=== PATIENT | female | born 1945 | race Caucasian/White ===

== ENCOUNTER → 2016-10-23 | Outpatient (CLI) | payer OTHER | LOC: FIMAGING 06:29 | PROVIDERS: ATTEND Physician Assistant | DX: M51.36 Other intervertebral disc degeneration, lumbar region (principal); M51.26 Other intervertebral disc displacement, lumbar region; M48.06 Spinal stenosis, lumbar region; Q76.6 Other congenital malformations of ribs ==

== ENCOUNTER → 2017-01-27 | Outpatient (CLI) | payer OTHER | LOC: FIMAGING 09:10 | PROVIDERS: ATTEND Neurological Surgery | DX: M51.36 Other intervertebral disc degeneration, lumbar region (principal); M41.86 Other forms of scoliosis, lumbar region ==

== ENCOUNTER → 2017-03-12 | Outpatient (CLI) | payer OTHER | LOC: FIMAGING 07:58 | PROVIDERS: ATTEND Internal Medicine | DX: Z12.31 Encounter for screening mammogram for malignant neoplasm of breast (principal) | CPT/HCPCS: G0202 ==

== ENCOUNTER 2017-10-25 05:41 | Observation (INO) | payer OTHER ==
--- NOTE | 2017-10-24 08:30 | GHP ---
[f rep st] PREOP HISTORY AND PHYSICAL DATE OF ADMISSION: 10/25/2017 HISTORY: The patient is a 72-year-old female who has longstanding and progressive right knee tricomp artment osteoarthritis. Her knee is painful, swollen, has some limitation of motion, impacts her gai t, causes her to limp, and significantly impacts her quality of life. She has had appropriate conser vative measures, she has tried to remain physically active and done exercises. She has used medicati ons, has had a couple rounds of viscosupplementation, and the last round was not much help. She comp lains the right knee tends to give way on her. Her x-rays show significant tricompartment osteoarthr itis, degenerative lipping, narrowing of joint space especially the patellofemoral joint, subchondral sclerosis. A right total knee arthroplasty is planned. PAST MEDICAL HISTORY: Remarkable for elevation of cholesterol, reflux. She has had a history of tommie g-induced hepatitis, osteopenia, hypothyroid. PAST SURGICAL HISTORY: Include a right knee scope, oophorectomy, hysterectomy, vein stripping, tonsi llectomy. MEDICATIONS: She is on 2 medications by prescription, Zetia 10 mg p.o. daily, thyroid 50 mcg daily. ALLERGIES: She has numerous allergies. Doxycycline, codeine labeled as ES 400 has been a problem, P henergan has been a problem. Vicodin, interestingly, has been okay. SOCIAL HISTORY: She is a nonsmoker. REVIEW OF SYSTEMS: Positive from a GI standpoint for reflux, from the cardiopulmonary standpoint for elevated cholesterol, from the endocrine standpoint for hypothyroid. PHYSICAL EXAM: GENERAL: The patient is a well-developed, well-nourished female in no apparent distr ess. HEAD AND NECK: Normocephalic, atraumatic. CHEST: Clear. CARDIOVASCULAR: Regular rate and r hythm. ABDOMEN: Soft. NEUROLOGIC: She is alert and oriented x3. EXTREMITIES: Examination of the right knee shows tenderness along the medial and lateral joint lines as well as around the patellofe moral joint, she has just about 100 degrees of bend, slight flexion contracture. NEUROVASCULAR: Int act. SKIN: Intact. IMAGING: X-rays as described, show right knee tricompartment osteoarthritis. PLAN: Right total knee arthroplasty. Benefits and risks of surgery have been reviewed with the serafin ent. She understands that the risks include infection, damage to blood vessels or nerves, failure or loosening of components, blood clot in the leg or lungs, bleeding and need for transfusion, and we d iscussed the rigorous nature of the rehabilitation period. She has signed a consent form and wishes to proceed. /[id number]/MODL
[2017-10-25] MEDS ORDERED: ceFAZolin 2 GM/SWFI 2 GM/20 ML SYR IVP ONE (05:51)
[2017-10-25] MEDS ORDERED: DEXAMETHASONE 4 MG/ML VIAL IVP ONE (05:51)
[2017-10-25] MEDS ORDERED: FAMOTIDINE 20 MG TAB PO ONE (05:51)
[2017-10-25] MEDS ORDERED: ACETAMINOPHEN 325 MG TAB PO ONE (05:51)
[2017-10-25] MEDS ORDERED: LR 1,000 ML IV ONE (05:53)
[2017-10-25] MEDS ORDERED: ROPIVACAINE 0.2% 80 MG, EPINEPHrine 0.2 MG, KETOROLAC TROMETHAMINE 30 MG in SYRINGE 0 ML IU ONE (06:00)
[2017-10-25] MEDS ORDERED: TRANEXAMIC ACID IV ONE (06:00)
[2017-10-25] MEDS ORDERED: NS IV ONE (06:00)
[2017-10-25] MEDS ORDERED: POVIDONE-IODINE 20 ML in SODIUM CL IRRIG SOLUTION 500 ML IRR ONE (06:00)
[2017-10-25] MEDS ORDERED: MIDAZOLAM 2 MG/2 ML VIAL IVP ONE (06:57)
[2017-10-25] MEDS ORDERED: ceFAZolin 1 GM/5 ML SYR ONE (06:58)
--- NOTE | 2017-10-25 06:59 | PDANEPAE ---
ANE History of Present Illness r knee oa ANE Past Medical History - Cardiovascular History Hx Hypertension: No Hx Arrhythmias: No Hx Chest Pain: No Hx Coronary Artery / Peripheral Vascular Disease: No Hx CHF / Valvular Disease: No Hx Palpitations: No - Pulmonary History Hx COPD: No Hx Asthma/Reactive Airway Disease: No Hx Recent Upper Respiratory Infection: No Hx Oxygen in Use at Home: No Hx Sleep Apnea: No Sleep Apnea Screening Result - Last Documented: Negative Pulmonary History Comment: FLU END OF 08/2017. EAR OTITIS MEDIA 06/2017 - Neurologic History Hx Cerebrovascular Accident: No Hx Seizures: No Hx Dementia: No - Endocrine History Hx Diabetes: No Endocrine History Comment: HYPOTHYROID - Renal History Hx Renal Disorders: No - Liver History Hx Hepatic Disorders: No - Neurological & Psychiatric Hx Hx Neurological and Psychiatric Disorders: No - Cancer History Hx Cancer: No - Congenital Disorder History Hx Congenital Disorders: No - GI History Hx Gastrointestinal Disorders: No Gastrointestinal History Comment: RARE HEARTBURN WILL USE OTC. PREV EGD/ COLONOSCOPY HAD SOME. LOWER - Other Health History Other Health History: OSTEOARTHRITIS - Chronic Pain History Chronic Pain: Yes (RT KNEE) - Surgical History Prior Surgeries: MICRODECOMPRESSION 02/2017. RT KNEE SCOPE. BREAST AUGMENTATION. HYSTERECTOMY. BSO. LT ANKLE RECONSTRUCTION. VENOUS STRIPPING. T&A ANE Review of Systems Review of Systems: - Exercise capacity METS (RN): 4 METS ANE Patient History - Allergies Allergies/Adverse Reactions: ketorolac tromethamine [From Toradol] Allergy (Mild, Verified 10/24/17 18:58) Rash codeine [Codeine] Allergy (Verified 10/24/17 18:58) NAUSEATED doxycycline Allergy (Verified 09/24/17 14:39) NAUSEA AND VOMITING erythromycin base [Erythromycin Base] Allergy (Verified 09/24/17 14:38) JAUNDICE Phenothiazines Allergy (Verified 09/24/17 14:38) JAUNDICE - Home Medications Home Medications: Acetaminophen [Tylenol ES 500 mg (*)] 1,000 mg PO HS 09/20/17 [Last Taken ] Ascorbic Acid [Vitamin C 500 mg (*)] 1,000 mg PO DAILY 09/20/17 [Last Taken ] Calcium Carbonate [Oyster Shell Calcium 500 mg (*)] 1,000 mg PO DAILY 09/20/17 [ Last Taken 10/18/17] Cholecalciferol Vit D3 [Vitamin D3 (*)] 1,000 units PO DAILY 09/20/17 [Last Taken 10/18/17] Doxylamine Succinate [Sleep Aid] 25 mg PO HS 09/20/17 [Last Taken 10/24/17] Ezetimibe [Zetia 10 MG (*)] 10 mg PO DAILY 09/20/17 [Last Taken 10/25/17] Herbals/Supplements -Info Only 1 ea PO DAILY 09/20/17 [Last Taken 10/18/17] Ibuprofen [Motrin (*)] 400 mg PO DAILY PRN 09/20/17 [Last Taken 10/18/17] Levothyroxine [Synthroid 50 mcg (*)] 50 mcg PO DAILY 09/20/17 [Last Taken ] Loperamide HCl [Imodium 2 mg (*)] 2 mg PO PRN PRN 09/20/17 [Last Taken 10/16/17] Multivitamins [Multivitamin (*)] 1 each PO DAILY 09/20/17 [Last Taken 10/18/17] Naproxen [Naprosyn] 500 mg PO DAILY PRN 09/20/17 [Last Taken 10/18/17] [place]-3 Fatty Acids [Fish Oil 1000 mg (*)] 1,000 mg PO DAILY 09/20/17 [Last Taken 10/18/17] traMADol [Ultram 50 mg (*)] 50 mg PO DAILY PRN 09/20/17 [Last Taken 10/23/17] - NPO status NPO Since - Liquids (Date): 10/25/17 NPO Since - Liquids (Time): 04:00 NPO Since - Solids (Date): 10/24/17 NPO Since - Solids (Time): 20:30 - Smoking Hx Smoking Status: Never smoked ANE Labs/Vital Signs - Vital Signs Blood Pressure: 142/57 Heart Rate: 74 Respiratory Rate: 16 O2 Sat (%): 97 Height: 167.64 cm Weight: 61.689 kg ANE Physical Exam - Airway Neck exam: FROM Mallampati Score: Class 1 Mouth exam: normal dental/mouth exam - Pulmonary Pulmonary: no respiratory distress - Cardiovascular Cardiovascular: regular rate and rhythym - ASA Status ASA Status: II ANE Anesthesia Plan Anesthesia Plan: GA w LMA, MAC, spinal Regional Anesthesia: adductor canal FNB
[2017-10-25] MEDS ORDERED: ONDANSETRON 4 MG/2 ML VIAL ONE (07:05)
[2017-10-25] MEDS ORDERED: PROPOFOL/EMULSION 500 MG/50 ML BOTTLE IV ONE ×2 (07:05→08:45)
[2017-10-25] MEDS ORDERED: DEXAMETHASONE 4 MG/ML VIAL ONE (07:05)
--- NOTE | 2017-10-25 07:28 | PDHPUP ---
History & Physical Update H&P update statement: This history and physical update is based on an assessment of the patient which was completed after admission or registration (within 24 hours), but prior to the surgery/procedure.
[2017-10-25] MEDS ORDERED: fentaNYL 100 MCG/2 ML INJ ONE ×2 (08:02→09:31)
[2017-10-25] MEDS ORDERED: ONDANSETRON 4 MG/2 ML VIAL IVP PRN ×2 (08:07→09:36)
[2017-10-25] MEDS ORDERED: NALOXONE HCL 0.4 MG/ML INJ IVP PRN (08:07)
[2017-10-25] MEDS ORDERED: ROPIVACAINE HCL 150 MG/30 ML INJ ONE (08:16)
[2017-10-25] MEDS ORDERED: HYDROmorphONE/DILAUDID 1 MG/ML INJ ONE (09:31)
[2017-10-25] MEDS: fentaNYL 100 MCG/2 ML INJ IVP PRN ×2 (09:34→09:42)
[2017-10-25] MEDS ORDERED: LACTULOSE 20 GM/30 ML UDCUP PO PRN (09:36)
[2017-10-25] MEDS ORDERED: DIPHENOXYLATE/ATROPINE LOMOTIL 1 TAB PO PRN (09:36)
[2017-10-25] MEDS ORDERED: CYCLOBENZAPRINE 10 MG TAB PO PRN (09:36)
[2017-10-25] MEDS ORDERED: TEMAZEPAM 15 MG CAP PO PRN (09:36)
[2017-10-25] MEDS ORDERED: diphenhydrAMINE 25 MG CAP PO PRN (09:36)
[2017-10-25] MEDS ORDERED: PROMETHAZINE HCL 25 MG/ML INJ IVP PRN (09:36)
[2017-10-25] MEDS ORDERED: ONDANSETRON DISINTEGRATING 4 MG TAB PO PRN (09:36)
[2017-10-25] MEDS ORDERED: METOCLOPRAMIDE 10 MG/2 ML VIAL IVP PRN (09:36)
[2017-10-25] MEDS ORDERED: KETOROLAC 30 MG/1 ML SDV IVP PRN (09:36)
[2017-10-25] MEDS ORDERED: MAGNESIUM HYDROXIDE 30 ML UDCUP PO PRN (09:36)
[2017-10-25] MEDS ORDERED: POLYETHYLENE GLYCOL 3350 17 GM PKT PO PRN (09:36)
[2017-10-25] MEDS ORDERED: BISACODYL 10 MG SUPP PR PRN (09:36)
[2017-10-25] MEDS ORDERED: PROMETHAZINE HCL 25 MG SUPPR PR PRN (09:36)
--- NOTE | 2017-10-25 09:38 | POSTANESTH ---
Post Anesthetic Evaluation Cardiovascular Status: Normal, Stable Respiratory Status: Normal, Stable Level of Consciousness/Mental Status: Can Participate in Eval Pain Control: Adequate, Prn Tx Ordered Nausea/Vomiting Control: Adequate, Prn Tx Ordered Complications Possibly Related to Anesthesia: None Noted
[2017-10-25] MEDS ORDERED: traMADol 50 MG TAB PO PRN (09:40)
[2017-10-25] MEDS: HYDROmorphONE/DILAUDID 1 MG/ML INJ IVP PRN ×4 (09:53→10:31)
[2017-10-25] MEDS ORDERED: LR 1,000 ML IV SCH (10:00)
--- NOTE | 2017-10-25 10:41 | GOP ---
[f rep st] OPERATIVE REPORT DATE OF OPERATION: 10/25/2017 SURGEON: Hu Augustin MD HARD TILE SETTER APPRENTICE: Enrico Ward, CSFA, LSA PREOPERATIVE DIAGNOSIS: Right knee osteoarthritis. POSTOPERATIVE DIAGNOSIS: Right knee osteoarthritis. PROCEDURE PERFORMED: Right total knee arthroplasty. FINDINGS: SPECIMENS: Include excised bone. ESTIMATED BLOOD LOSS: Minimal. INDICATIONS: The patient is a 72-year-old female, who presents with history, exam, and x-rays consis tent with severe right knee tricompartment osteoarthritis. DESCRIPTION OF PROCEDURE: The patient was taken the operating room, received a spinal block, and was placed supine on the operating room table. She received 2 g of IV Ancef as well as her dose of conde examic acid. A tourniquet was fit high on the right thigh, and the right leg was prepped and draped free in the usual fashion with chlorhexidine. The limb was elevated, exsanguinated, the tourniquet i nflated 275 mmHg. I made a longitudinal incision in the midline, dissected through subcutaneous tiss ue, exposed the extensor mechanism. Then used a medial parapatellar arthrotomy. The patella was inv erted and measured its thickness at 20 mm. I removed 9 mm of cartilage and bone to accommodate the i mplant. This was sized to a 35 and PEG holes were drilled and the trial component was a good fit and I trimmed osteophytes. The knee was flexed. I drilled a elevator pilot hole in the distal femur using intra medullary device at 5 degrees of valgus to make a distal femoral cut. There was no flexion contractu re, so this was a neutral cut. I sized the femur to a size 4. I applied appropriate cutting blocks and made anterior, posterior, and chamfer cuts as well as the notch cuts for this bi-cruciate stabili zed knee. Size 4 component was a good fit. The knee was flexed. The posterior and lateral retracto rs were placed. I used an extramedullary device on the tibia. I adjusted for rotation posterior slo pe, appropriate depth, made a cut, sized the tibia at 3, dialed in the rotation, and completed the ti bial prep. All the trial components were removed. I jet lavaged the knee, dried the surfaces. Meth ylmethacrylate was applied to tibia, femur, then patella, and all the components were placed. I did trial reductions and found that a 9 mm articular tray allowed full extension, excellent rollback in f lexion, appropriate collateral stability, and appropriate soft tissue tension. The size 9 mm articul ar tray cross-linked poly was then slipped into the tibial component. I let the tourniquet down afte r about an hour and 10 minutes. She received a second dose of tranexamic acid IV. I closed the arth rotomy with interrupted [id number] sutures of 0 Mersilene. Subcutaneous tissue was closed with 2-0 Monocryl, and the skin was closed with raghu. The wound was dressed with Betadine-soaked Adapt ic, 4 x 4, sterile Webril, and a long-leg EVY stocking. There were no complications. DRAINS: None. COUNTS: All counts were correct. The patient was taken in stable condition to Recovery. My assembler surgical garment was a medical necessity for this knee replacement. SUMMARY OF COMPONENTS: This is a [employer] knee. All components cemented. The femur is Oxinium. The poly is cross-linked polyethylene femur size 4, tibia size 3, liner is 9 mm thick, and the patella is 35. /[id number]/MODL
[2017-10-25] MEDS: ACETAMINOPHEN 325 MG TAB PO SCH ×2 (12:11→18:42)
[2017-10-25] MEDS: oxyCODONE IR 5 MG TAB PO PRN ×2 (13:35→18:42)
[2017-10-25] MEDS ORDERED: ceFAZolin 2 GM/DEXTROSE 100 ML IV SCH (14:00)
--- NOTE | 2017-10-25 15:00 | ASMTCMCOM ---
CM Note CM Note Notes: Chart reviewed. Patient s/p TKA. She lives in [place] with her . Pt reported to staff Dr. Augustin states she will need home PT. I attempted to see if she had [facility] company chosen and provide her with a list of providers but she is asleep. Therapy notes pending. CM to follow. Date Signed: 10/25/2017 03:00 PM Electronically Signed By:Areli Mojica RN
[2017-10-25] MEDS: ceFAZolin 2 GM/SWFI 2 GM/20 ML SYR IVP SCH (16:20)
[2017-10-25] MEDS: FAMOTIDINE 20 MG TAB PO SCH (21:27)
[2017-10-25] MEDS: ASPIRIN 325 MG TAB PO SCH (21:28)
[2017-10-25] MEDS: SENNOSIDES/DOCUSATE SODIUM TAB PO SCH (21:32)
[2017-10-26] MEDS: ceFAZolin 2 GM/SWFI 2 GM/20 ML SYR IVP SCH (00:18)
[2017-10-26] MEDS: ACETAMINOPHEN 325 MG TAB PO SCH ×3 (00:18→06:16)
[2017-10-26] MEDS: oxyCODONE IR 5 MG TAB PO PRN ×3 (03:51→11:10)
--- NOTE | 2017-10-26 07:47 | SOAPPROG ---
SOAP Progress Note Assessment/Plan: Assessment: 10/26/17 R TKA, up walking, pain controlled, dressing dry Plan: 10/26/17 07:44 PT/OT, and home, has meds: vicodin, celebrex and asa, home PT Objective: Vital Signs Temp Pulse Resp BP Pulse Ox 36.5 C 75 19 121/55 H 99 10/26/17 03:40 10/26/17 03:40 10/26/17 03:40 10/26/17 03:40 10/26/17 03:40 Laboratory Results 10/26/17 04:53 10/25/17 10/26/17 10/27/17 05:59 05:59 05:59 Intake Total 2400 Output Total 1015 Balance 1385 ICD10 Worksheet Patient Problems: Problems Problem Status Onset Osteoarthritis of right knee Acute - ICD10 Problem Qualifiers (1) Osteoarthritis of right knee
[2017-10-26 08:04] VITALS: BP 137/56; PULSE 73; RESP 18; TEMP 98.4; O2SAT 97
[2017-10-26] MEDS: FAMOTIDINE 20 MG TAB PO SCH (08:44)
[2017-10-26] MEDS: ASPIRIN 325 MG TAB PO SCH (08:44)
[2017-10-26] MEDS: SENNOSIDES/DOCUSATE SODIUM TAB PO SCH (08:45)
[2017-10-26] MEDS ORDERED: CALCIUM CARBONATE 500 MG TAB PO SCH (09:00)
[2017-10-26] MEDS ORDERED: MULTIVITAMINS 1 EACH TAB PO SCH (09:00)
[2017-10-26] MEDS ORDERED: EZETIMIBE 10 MG TAB PO SCH (09:00)
[2017-10-26] MEDS ORDERED: CHOLECALCIFEROL VIT D3 1,000 UNITS TAB PO SCH (09:00)
[2017-10-26] MEDS ORDERED: OMEGA-3 FATTY ACIDS 1,000 MG CAP PO SCH (09:00)
[2017-10-26] MEDS ORDERED: LEVOTHYROXINE 50 MCG TAB PO SCH (09:00)
[2017-10-26] MEDS ORDERED: Herbals/Supplements -Info Only PO SCH (09:00)
[2017-10-26] MEDS ORDERED: ASCORBIC ACID 500 MG TAB PO SCH (09:00)
--- NOTE | 2017-10-26 12:02 | ASDISCHSUM ---
Discharge Information Plan Status:Home with Home Health Medically Cleared to Leave: Discharge Date:10/26/2017 11:56 AM CM D/C Disposition:Home Health Service ADT D/C Disposition:[id number] Projected Discharge Date:10/26/2017 11:00 AM Transportation at D/C:Family Discharge Delay Reason: Follow-Up Date:10/26/2017 11:00 AM Discharge Slot: Final Diagnosis: Placement Information Referral Type:*Home Health Care Services Referral ID:[id number] Provider Name:[facility] Address 1:[address] Address 2: City:[place] Selection Factors: State:[place] Patient Contact Information Contact Name:ELAINE Relationship: Address:[address] City:[place] Alternate Phone: [facility]/Zip Code:[place] [address] Email: Financial Information Financial Class:Medicare Primary Plan Desc:MEDICARE OUTPATIENT Primary Plan Number:[id number] Secondary Plan Desc:JESSA MARI [id number] [facility] Secondary Plan Number:[id number] Assessment Information [facility] CM Progress Note CM Note CM Note Notes: Chart reviewed. Patient s/p TKA. She lives in [place] with her . Pt reported to staff Dr. Augustin states she will need home PT. I attempted to see if she had [facility] company chosen and provide her with a list of providers but she is asleep. Therapy notes pending. CM to follow. Date Signed: 10/25/2017 03:00 PM Electronically Signed By:Areli Mojica RN [facility] CM Progress Note CM Note CM Note Notes: Pt medically stable for d/c with [facility] which was pre-arranged by MD office, the MD office has provided [facility] orders already. Date Signed: 10/26/2017 12:01 PM Electronically Signed By:YOCASTA Newberry Intervention Information Intervention Type:*Incorrect Registration Date of Service:10/25/2017 10:01 AM Patient Type:Inpatient Staff Member:GRAZYNA Kirkpatrick, Dacia Hours: Discipline: Severity: Comment: Intervention Type:*GRAY-Signed Date of Service:10/25/2017 02:09 PM Patient Type:Observation Staff Member:Izabela Conrad Hours: Discipline: Severity: Comment:
== END 2017-10-26 11:56 | disposition home health service (06) ==
LOC: F3N 05:41 → INTOOBSV 05:41 → F3N 10:57
PROVIDERS: ADMIT Orthopaedic Surgery; ATTEND Orthopaedic Surgery
PROC: 0SRC0JZ Replacement of Right Knee Joint with Synthetic Substitute, Open Approach (ICD-10-PCS; principal; 2017-10-25 07:15)
DX: M17.11 Unilateral primary osteoarthritis, right knee (principal); E78.00 Pure hypercholesterolemia, unspecified; K21.9 Gastro-esophageal reflux disease without esophagitis; K75.9 Inflammatory liver disease, unspecified; E03.9 Hypothyroidism, unspecified
CPT/HCPCS: 27447; 73560; 88311; 97110; 97116; 97161; 97165; 97530; C1713; C1776; G8978; G8979; G8980; G8987; G8988; G8989; J0171; J0690; J1100; J1170; J1885; J2250; J2405; J2704; J2795; J3010

== ENCOUNTER → 2018-03-14 | Outpatient (CLI) | payer OTHER | LOC: FIMAGING 10:13 | PROVIDERS: ATTEND Internal Medicine | DX: Z12.31 Encounter for screening mammogram for malignant neoplasm of breast (principal) ==

== ENCOUNTER 2018-06-20 05:36 | Inpatient (IN) | payer OTHER ==
--- NOTE | 2018-06-19 13:18 | GHP ---
DATE OF ADMISSION: 06/20/2018 HISTORY: The patient is a 73-year-old female who presents with left knee tricompartment osteoarthrit is. She has pain, swelling, and abnormalities of her gait, limited motion, this impacts her quality of life and even activities of daily living. She has tried appropriate conservative measures. She h as had a successful right total knee arthroplasty. She would like to proceed with replacement of the left side hip. PAST MEDICAL HISTORY: Remarkable for elevated cholesterol. She has some reflux for which she uses P epcid at night. She has osteopenia, hypothyroid. PAST SURGICAL HISTORY: Her surgeries, include a right total knee arthroplasty, oophorectomy, vascula r vein stripping lower extremity, tonsillectomy, hysterectomy. She has had a previous right knee art hroscopy. MEDICATIONS: Synthroid 50 mcg p.o. daily. ALLERGIES: She has medicine allergies, sensitivities. Codeine is a problem, oxycodone is tolerated, doxycycline, gadolinium and Phenergan, though Zofran works fine. SOCIAL HISTORY: She is a nonsmoker. REVIEW OF SYSTEMS: Positive from the endocrine standpoint for hypothyroid. PHYSICAL EXAM: GENERAL: The patient is a well-developed, well-nourished female in no apparent distr ess. HEAD AND NECK: Normocephalic, atraumatic. CHEST: Clear. CARDIOVASCULAR: Regular rate and r hythm. ABDOMEN: Soft. NEUROLOGIC: She is alert orient x3. EXTREMITIES: Examination of the left lower extremity shows a slight flexion contracture. She is bending to 120 degrees. She has joint li ne tenderness, small effusion, reasonable valgus alignment. Neurovascular exam appears intact. IMPRESSION: Left knee osteoarthritis. PLAN: Procedure left total knee arthroplasty. Benefits and risks of surgery have been reviewed with the patient. She understands that the risks, include infection, damage to blood vessel or nerve, fa ilure or loosening of components and need for revision, blood clot in leg or lungs, bleeding, and nee d for transfusion, and she is well aware of the rigorous nature of the rehabilitation, she has signed a consent form wishes to proceed. /[id number]/MODL
[2018-06-20] MEDS ORDERED: POVIDONE-IODINE 20 ML in SODIUM CL IRRIG SOLUTION 500 ML IRR ONE (06:00)
[2018-06-20] MEDS ORDERED: TRANEXAMIC ACID 1,000 MG in NS 100 ML IV ONE (06:00)
[2018-06-20] MEDS ORDERED: ROPIVACAINE 0.2% 80 MG, EPINEPHrine 0.2 MG, KETOROLAC TROMETHAMINE 30 MG in SYRINGE 0 ML IU ONE (06:00)
[2018-06-20] MEDS ORDERED: GABAPENTIN 300 MG CAP PO ONE (06:13)
[2018-06-20] MEDS ORDERED: ceFAZolin 2 GM/DEXTROSE 100 ML IV ONE (06:13)
[2018-06-20] MEDS ORDERED: ACETAMINOPHEN 325 MG TAB PO ONE (06:13)
[2018-06-20] MEDS ORDERED: ONDANSETRON 4 MG/2 ML VIAL IVP ONE (06:13)
[2018-06-20] MEDS ORDERED: DEXAMETHASONE 4 MG/ML VIAL IVP ONE (06:13)
[2018-06-20] MEDS ORDERED: FAMOTIDINE 20 MG TAB PO ONE (06:13)
[2018-06-20] MEDS ORDERED: LR 1,000 ML IV ONE (06:14)
[2018-06-20] MEDS ORDERED: LIDOCAINE 1% 2 ML INJ ID PRN (06:14)
[2018-06-20] MEDS ORDERED: ceFAZolin 1 GM/5 ML SYR ONE (06:20)
--- NOTE | 2018-06-20 06:46 | PDANEPAE ---
ANE History of Present Illness OA here for TKA ANE Past Medical History - Cardiovascular History Hx Hypertension: No Hx Arrhythmias: No Hx Chest Pain: No Hx Coronary Artery / Peripheral Vascular Disease: No Hx CHF / Valvular Disease: No Hx Palpitations: No - Pulmonary History Hx COPD: No Hx Asthma/Reactive Airway Disease: No Hx Recent Upper Respiratory Infection: No Hx Oxygen in Use at Home: No Hx Sleep Apnea: No Sleep Apnea Screening Result - Last Documented: Negative Pulmonary History Comment: FLU END OF 08/2017. 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 PREV EGD/ COLONOSCOPY HAD SOME. LOWER - Other Health History Other Health History: OSTEOARTHRITIS - Chronic Pain History Chronic Pain: Yes (RT KNEE) - Surgical History Prior Surgeries: MICRODECOMPRESSION 02/2017. RT KNEE SCOPE. BREAST AUGMENTATION. HYSTERECTOMY. BSO. LT ANKLE RECONSTRUCTION. VENOUS STRIPPING. T&A ANE Review of Systems Review of Systems: - Exercise capacity METS (RN): 4 METS ANE Patient History - Allergies Allergies/Adverse Reactions: codeine [Codeine] Allergy (Verified 05/16/18 11:18) NAUSEATED doxycycline Allergy (Verified 05/16/18 11:18) NAUSEA AND VOMITING erythromycin base [Erythromycin Base] Allergy (Verified 05/16/18 11:18) jaundice/elevated liver enzymes w/high doses Iodinated Contrast- Oral and IV Dye Allergy (Verified 05/11/18 12:02) Hives Phenothiazines Allergy (Verified 05/16/18 11:18) fever, elevated liver enzymes - Home Medications Home Medications: Acetaminophen [Tylenol ES 500 mg (*)] 1,000 mg PO HS 09/20/17 [Last Taken ] Ascorbic Acid [Vitamin C 500 mg (*)] 1,000 mg PO DAILY 09/20/17 [Last Taken ] Calcium Carbonate [Oyster Shell Calcium 500 mg (*)] 1,000 mg PO DAILY 09/20/17 [ Last Taken 10/18/17] Cholecalciferol Vit D3 [Vitamin D3 (*)] 1,000 units PO DAILY 09/20/17 [Last Taken 10/18/17] Doxylamine Succinate [Sleep Aid] 50 mg PO HS 09/20/17 [Last Taken 10/24/17] Herbals/Supplements -Info Only 1 ea PO DAILY 09/20/17 [Last Taken 10/18/17] Ibuprofen [Motrin (*)] 400 mg PO DAILY PRN 09/20/17 [Last Taken 10/18/17] Levothyroxine [Synthroid 50 mcg (*)] 50 mcg PO DAILY 09/20/17 [Last Taken ] Loperamide HCl [Imodium 2 mg (*)] 2 mg PO PRN PRN 09/20/17 [Last Taken 10/16/17] Multivitamins [Multivitamin (*)] 1 each PO DAILY 09/20/17 [Last Taken 10/18/17] [place]-3 Fatty Acids [Fish Oil 1000 mg (*)] 1,000 mg PO DAILY 09/20/17 [Last Taken 10/18/17] traMADol [Ultram 50 mg (*)] 50 mg PO DAILY PRN 09/20/17 [Last Taken 10/23/17] Famotidine [Pepcid 20 MG (*)] 20 mg PO HS 05/11/18 [Last Taken Unknown] - NPO status NPO Status: no food or drink >8 hours NPO Since - Liquids (Date): 06/19/18 NPO Since - Liquids (Time): 00:00 NPO Since - Solids (Date): 06/19/18 NPO Since - Solids (Time): 00:00 - Anes Hx Anes Hx: no prior problems - Smoking Hx Smoking Status: Never smoked - Alcohol Use Alcohol Use: Occasionally - Family Anes Hx Family Anes Hx: none Family Hx Anesthesia Complications: Sister also locks jaw w/ANE ANE Labs/Vital Signs - Vital Signs Vital Signs: reviewed preoperatively; see RN documention for details Height: 167.64 cm Weight: 64.41 kg ANE Physical Exam - Airway Neck exam: FROM Mallampati Score: Class 2 Mouth exam: normal dental/mouth exam - Pulmonary Pulmonary: no respiratory distress, clear to auscultation - Cardiovascular Cardiovascular: regular rate and rhythym, no murmur, rub, or gallop - ASA Status ASA Status: II ANE Anesthesia Plan Anesthesia Plan: GA with mask, spinal Regional Anesthesia: single shot NB, adductor canal FNB
[2018-06-20] MEDS ORDERED: MIDAZOLAM 2 MG/2 ML VIAL IVP ONE (06:47)
[2018-06-20] MEDS ORDERED: PROPOFOL/EMULSION 500 MG/50 ML BOTTLE IV ONE ×2 (06:54→09:21)
--- NOTE | 2018-06-20 07:20 | PDHPUP ---
History & Physical Update H&P update statement: This history and physical update is based on an assessment of the patient which was completed after admission or registration (within 24 hours), but prior to the surgery/procedure. H&P update: H&P reviewed & patient examined (no change)
[2018-06-20] MEDS ORDERED: ROPIVACAINE HCL 150 MG/30 ML INJ ONE (08:09)
[2018-06-20] MEDS ORDERED: clonIDINE 1 MG/10 ML VIAL EP ONE (08:09)
[2018-06-20] MEDS ORDERED: ONDANSETRON 4 MG/2 ML VIAL IVP PRN ×2 (09:31→09:39)
[2018-06-20] MEDS ORDERED: ACETAMINOPHEN 500 MG TAB PO PRN (09:31)
[2018-06-20] MEDS ORDERED: NALOXONE HCL 0.4 MG/ML INJ IVP PRN (09:31)
[2018-06-20] MEDS ORDERED: oxyCODONE IR 5 MG TAB PO PRN (09:31)
--- NOTE | 2018-06-20 09:37 | POSTANESTH ---
Post Anesthetic Evaluation Cardiovascular Status: Normal, Stable, Similar to Pre-Op Cond Respiratory Status: Normal, Stable, Similar to Pre-op Cond. Level of Consciousness/Mental Status: Can Participate in Eval, Alert and Oriented Pain Control: Adequate, Prn Tx Ordered Nausea/Vomiting Control: Adequate, Prn Tx Ordered Complications Possibly Related to Anesthesia: None Noted
[2018-06-20] MEDS ORDERED: MAGNESIUM HYDROXIDE 30 ML UDCUP PO PRN (09:39)
[2018-06-20] MEDS ORDERED: TEMAZEPAM 15 MG CAP PO PRN (09:39)
[2018-06-20] MEDS ORDERED: diphenhydrAMINE 25 MG CAP PO PRN (09:39)
[2018-06-20] MEDS ORDERED: CYCLOBENZAPRINE 10 MG TAB PO PRN (09:39)
[2018-06-20] MEDS ORDERED: PROMETHAZINE HCL 25 MG SUPPR PR PRN (09:39)
[2018-06-20] MEDS ORDERED: ONDANSETRON DISINTEGRATING 4 MG TAB PO PRN (09:39)
[2018-06-20] MEDS ORDERED: KETOROLAC 15 MG/1 ML SDV IVP ONE (09:39)
[2018-06-20] MEDS ORDERED: METOCLOPRAMIDE 10 MG/2 ML VIAL IVP PRN (09:39)
[2018-06-20] MEDS ORDERED: DIPHENOXYLATE/ATROPINE LOMOTIL 1 TAB PO PRN (09:39)
[2018-06-20] MEDS ORDERED: LACTULOSE 20 GM/30 ML UDCUP PO PRN (09:39)
[2018-06-20] MEDS ORDERED: PROMETHAZINE HCL 25 MG/ML INJ IVP PRN (09:39)
[2018-06-20] MEDS ORDERED: POLYETHYLENE GLYCOL 3350 17 GM PKT PO PRN (09:39)
[2018-06-20] MEDS ORDERED: BISACODYL 10 MG SUPP PR PRN (09:39)
[2018-06-20] MEDS ORDERED: LR 1,000 ML IV SCH (10:00)
[2018-06-20] MEDS ORDERED: fentaNYL 100 MCG/2 ML INJ ONE (10:01)
[2018-06-20] MEDS: fentaNYL 100 MCG/2 ML INJ IVP PRN ×2 (10:05→10:40)
--- NOTE | 2018-06-20 10:13 | GOP ---
DATE OF OPERATION: 06/20/2018 SURGEON: Hu Augustin MD ADMISSIONS ASSISTANT: IRLANDA Puga, A ANESTHESIOLOGIST: Dr. José Luis Sanders PREOPERATIVE DIAGNOSIS: Left knee osteoarthritis. POSTOPERATIVE DIAGNOSIS: Left knee osteoarthritis. PROCEDURE PERFORMED: Left total knee arthroplasty. FINDINGS: SPECIMENS: Include excised bone. ESTIMATED BLOOD LOSS: Minimal. INDICATIONS: The patient is a 73-year-old female who presents with history, exam, x-rays, all consis tent with advanced tricompartment left knee osteoarthritis. She has tried appropriate conservative m easures. She wishes to proceed now with a left total knee arthroplasty. DESCRIPTION OF PROCEDURE: The patient was taken to the operating room and seated on the operating ro om table. A spinal anesthetic was provided by Dr. Sanders. She then was placed supine. She received IV sedation. She received IV antibiotics, as well as tranexamic acid. A tourniquet was fit on the l eft thigh and the left leg was thoroughly prepped with chlorhexidine in the usual fashion in neutral rotation. The limb was elevated, exsanguinated, and the tourniquet inflated to 275 mmHg. I made a longitudinal incision in the midline, dissected through subcutaneous tissue. I used a media l parapatellar arthrotomy and inverted the patella. Thickness was 20 mm. I removed 9 mm of cartilag e and bone, and sized the surface to a 35, trimmed any rimming osteophytes. I drilled peg holes and the combination of her upper mattaponi patella and the component reestablished her patellar thickness. The pa tella was inverted, the knee was flexed, and I drilled a check pilot hole in the distal femur. I used an i ntramedullary guide, 5 degrees valgus cut. She had a slight flexion contracture, so I used an extra +2 of bone removed and made a nice flat cut. The knee was extended. I used an appropriate thickness spacer to make a nica on the tibia as a planning for that cut. I then reflexed the knee, sized the femur between a 4 and a 5. I downsized to a 4 and made appropria te anterior, posterior, and camphor cuts and notch cuts for this bi-cruciate stabilized knee. The si ze 4 component was a very good fit. I placed appropriate retractors. Knee was flexed. I used an ex tramedullary device on the tibia. I adjusted for posterior slope and rotation. I made my tibial cut . I sized the surface at a 3. I dialed in the rotation and completed the preparation. All bone surfaces were jet lavaged with antibiotics. All surfaces were cemented. I applied the tibi al component, the femoral component, and the patellar component, and when the cement had hardened, I did trial reductions. I found that a 10 mm articular spacer allowed excellent stability, full extens ion, and good rollback in flexion. The size 10 cross-link polyethylene component was snapped into pl ladan. The tourniquet was let down after about an hour and 15 minutes. I used a Betadine rinse and an tibiotic rinse. The arthrotomy was closed with interrupted rxvzel-jb-bieve sutures of 0 Mersilene, subcutaneous tissu e was closed with 2-0 Monocryl, and the skin was closed with raghu. I did inject a joint cocktail prior to closure. She received a second dose of tranexamic acid during the closure as well. The wou nd was dressed with Betadine-soaked Adaptic, 4 x 4, sterile Webril, and a long-leg EVY stocking. The re were no complications. DRAINS: No drains. COUNT: All counts were correct and the patient was taken in stable condition to recovery. My assistant director, Enrico Ward, was a medical necessity for this procedure, a total knee repla cement. SUMMARY OF COMPONENTS: This is a [employer] bi-cruciate stabilized knee, all component s cemented. The femur is Oxinium. The tibia is crosslink poly, femur size 4, tibia size 3, patella 35 mm. The articular liner 10 mm thick. /[id number]/MODL
[2018-06-20] MEDS: ACETAMINOPHEN 325 MG TAB PO SCH ×3 (11:20→23:49)
[2018-06-20] MEDS: oxyCODONE IR 5 MG TAB PO PRN ×4 (11:21→22:12)
--- NOTE | 2018-06-20 11:58 | PDMN ---
Medical Necessity Medical necessity: [facility] [place] S700 Knee Arthroplasty, Total, 73 yo s/p L TKA for L knee tricompartment osteoarthritis, PT/OT evals pending, admit status IP, hx R TKA, osteopenia, hypothyroid, vascular vein stripping LE, elevated cholesterol, reflux.
[2018-06-20] MEDS: ceFAZolin 2 GM/DEXTROSE 100 ML IV SCH ×2 (13:21→22:19)
[2018-06-20] MEDS ORDERED: FAMOTIDINE 20 MG TAB PO SCH (21:00)
[2018-06-20] MEDS: ASPIRIN 81 MG CHEWABLE TAB PO SCH (22:13)
[2018-06-20] MEDS: FAMOTIDINE 20 MG TAB PO SCH (22:13)
[2018-06-20] MEDS: SENNOSIDES/DOCUSATE SODIUM TAB PO SCH (22:14)
[2018-06-21] MEDS: oxyCODONE IR 5 MG TAB PO PRN ×3 (04:58→11:06)
[2018-06-21] MEDS: ACETAMINOPHEN 325 MG TAB PO SCH ×2 (05:00→11:04)
[2018-06-21 07:31] VITALS: BP 108/51
--- NOTE | 2018-06-21 08:06 | SOAPPROG ---
SOAP Progress Note Assessment/Plan: Assessment: POD#1 L TKA, pain controlled,Hct 34, xray fine Plan: 06/21/18 08:02 d/c home after PT, celebrex, asa, tylenol, oxy, PT at [facility] Objective: Vital Signs Temp Pulse Resp BP Pulse Ox 36.8 C 64 14 108/51 L 96 06/21/18 07:31 06/21/18 07:31 06/21/18 07:31 06/21/18 07:31 06/21/18 07:31 Laboratory Results 06/21/18 04:20 06/20/18 06/21/18 06/22/18 05:59 05:59 05:59 Intake Total 3149 Output Total 600 Balance 2549 ICD10 Worksheet Patient Problems: Problems Problem Status Onset Osteoarthritis of right knee Acute
[2018-06-21] MEDS: SENNOSIDES/DOCUSATE SODIUM TAB PO SCH (08:37)
[2018-06-21] MEDS: ASPIRIN 81 MG CHEWABLE TAB PO SCH (08:38)
[2018-06-21] MEDS: FAMOTIDINE 20 MG TAB PO SCH (08:38)
[2018-06-21] MEDS ORDERED: CALCIUM CARBONATE 500 MG TAB PO SCH (09:00)
[2018-06-21] MEDS ORDERED: MULTIVITAMINS 1 EACH TAB PO SCH (09:00)
[2018-06-21] MEDS ORDERED: OMEGA-3 FATTY ACIDS 1,000 MG CAP PO SCH (09:00)
[2018-06-21] MEDS ORDERED: CHOLECALCIFEROL VIT D3 1,000 UNITS TAB PO SCH (09:00)
[2018-06-21] MEDS ORDERED: LEVOTHYROXINE 50 MCG TAB PO SCH (09:00)
[2018-06-21] MEDS ORDERED: ASCORBIC ACID 500 MG TAB PO SCH (09:00)
--- NOTE | 2018-06-21 10:25 | ASMTCMCOM ---
CM Note CM Note Notes: Patient is POD #1 L TKA. She is doing well. She lives with her and has outpatient PT scheduled. No other needs identified. Date Signed: 06/21/2018 10:24 AM Electronically Signed By:Cathryn Corey RN
== END 2018-06-21 11:23 | disposition home or self-care (01) | DRG 470 ==
LOC: F3N 05:36 → OBSVTOIN 09:45 → F3N 11:06
PROVIDERS: ADMIT Orthopaedic Surgery; ATTEND Orthopaedic Surgery
PROC: 0SRD0J9 Replacement of Left Knee Joint with Synthetic Substitute, Cemented, Open Approach (ICD-10-PCS; principal; 2018-06-20 07:15)
DX: M17.12 Unilateral primary osteoarthritis, left knee (principal); Z96.651 Presence of right artificial knee joint; E78.00 Pure hypercholesterolemia, unspecified; E03.9 Hypothyroidism, unspecified
CPT/HCPCS: 97116-GP; 97161-GP; 97530-GP; C1713; G8978-GP-CJ; G8979-GP-CI; G8980-GP-CI; J0171; J0690; J0735; J1100; J1885; J2250; J2405; J2704; J2795; J3010